=== PATIENT | female | born 1970 | race Caucasian/White ===

== ENCOUNTER → 2016-10-23 | Outpatient (REF) | payer OTHER | LOC: M LAB REF 16:29 | PROVIDERS: ATTEND Internal Medicine | DX: R53.83 Other fatigue (principal) ==

== ENCOUNTER → 2016-11-14 | Outpatient (REF) | payer OTHER ==
[2016-11-14 14:14] LABS: CALCIUM OXALATE CRYSTALS MODERATE
[2016-11-14 14:15] LABS: PERCENT SATURATION 18.6 % (13.2-37.4)
== END ==
LOC: M LAB REF 12:47
PROVIDERS: ATTEND Internal Medicine
DX: Z01.812 Encounter for preprocedural laboratory examination (principal)

== ENCOUNTER → 2017-05-16 | Outpatient (REF) | payer OTHER ==
[2017-05-17 13:39] LABS: VITAMIN B12 LEVEL 571 PG/ML (247-911)
== END ==
LOC: M LAB REF 13:01
DX: D64.9 Anemia, unspecified (principal); R53.83 Other fatigue
CPT/HCPCS: 82607

== ENCOUNTER → 2018-10-03 | Outpatient (REF) | payer OTHER ==
[2018-10-03 14:02] LABS: C REACTIVE PROTEIN QUANTITATIV < 0.30 MG/DL (0.00-0.30); URIC ACID 4.5 MG/DL (2.6-6.0)
== END ==
LOC: M LAB REF 13:37
PROVIDERS: ATTEND Internal Medicine
DX: M25.569 Pain in unspecified knee (principal)

== ENCOUNTER → 2018-12-06 | Outpatient (CLI) | payer OTHER ==
--- NOTE | 2018-12-06 16:13 | REP ---
Right shoulder series: Three views. History: Shoulder pain. Prior findings: The right glenohumeral and acromioclavicular joints are normally aligned. Periarticular soft tissues are unremarkable. Impression: Negative radiographs of the right shoulder. Electronically Signed by Abundio Mcleod MD 12/06/2018 04:05 P
--- NOTE | 2018-12-07 07:26 | REP ---
Cervical spine series: Seven views. History: Neck pain. Findings: Lateral views done in flexion/extension and neutral position show straightening and reversal of the normal cervical lordosis. No subluxation or instability is seen. Cervical vertebral body heights are preserved. There is degenerative narrowing of the C5-6 and C6-7 disc spaces with anterior and posterior osteophytic ridging. The posterior ridging is most pronounced at C5-6. Oblique images demonstrate bilateral uncovertebral spurring at C5-6 producing neural foraminal narrowing, worse on the right. Facets are normally aligned. AP and open mouth odontoid views are unremarkable. Impression: Degenerative disc disease at C5-6 and to a lesser extent C6-7. Straightening. Neural foraminal narrowing at C5-6. Electronically Signed by Abundio Mcleod MD 12/07/2018 09:38 A
== END ==
LOC: M WUC 15:36
PROVIDERS: ATTEND Physician Assistant
DX: M50.322 Other cervical disc degeneration at C5-C6 level (principal); M25.78 Osteophyte, vertebrae; S46.011A Strain of muscle(s) and tendon(s) of the rotator cuff of right shoulder, initial encounter; Y92.9 Unspecified place or not applicable; Y93.9 Activity, unspecified

== ENCOUNTER → 2019-02-11 | Outpatient (CLI) | payer OTHER ==
[~2019-02-11] MED LIST: METHACHOLINE KIT (J7674) INH ONE
--- NOTE | 2019-02-11 09:35 | PFTRPT ---
Height: 70.00 Inches Weight: 183.00 Lbs BSA: 2.01 Diagnosis: R06 DATE OF PROCEDURE: 02/11/2019 ORDERED BY: Dr. Lau INTERPRETATION: Study of excellent technical quality. Under protocol, methacholine was administered. At a dose of 2.5 mg or 13.875 CDUs, a 34% decline in the FEV1 was noted. PC of 0.6 is significant. Flow rates did return to baseline post bronchodilator administration. IMPRESSION: Positive methacholine challenge study. MTDD
== END ==
LOC: M CARPUL 08:39
PROVIDERS: ATTEND Internal Medicine
DX: R06.02 Shortness of breath (principal)
CPT/HCPCS: 94070; J7674

== ENCOUNTER → 2019-07-07 | Outpatient (REF) | payer OTHER ==
[2019-07-07 19:20] LABS: INFLUENZA A AMPLIFICATION POSITIVE (NEGATIVE); INFLUENZA B AMPLIFICATION NEGATIVE (NEGATIVE)
== END ==
LOC: M LAB REF 17:01
PROVIDERS: ATTEND Internal Medicine
DX: J02.9 Acute pharyngitis, unspecified (principal); R50.9 Fever, unspecified

== ENCOUNTER → 2019-11-17 | Outpatient (REF) | payer OTHER | LOC: M LAB REF 16:17 | PROVIDERS: ATTEND Internal Medicine | DX: D51.9 Vitamin B12 deficiency anemia, unspecified (principal) ==

== ENCOUNTER → 2020-04-14 | Outpatient (REF) | payer OTHER ==
[2020-04-15 13:43] LABS: CHLAMYDIA DNA AMPLIFICATION NEGATIVE (NEGATIVE); GC DNA AMPLIFICATION NEGATIVE (NEGATIVE)
== END ==
LOC: M WUC 09:49
PROVIDERS: ATTEND Physician Assistant
DX: R10.30 Lower abdominal pain, unspecified (principal)

== ENCOUNTER → 2020-07-12 | Outpatient (REF) | payer OTHER | LOC: M LAB REF 16:09 | PROVIDERS: ATTEND Internal Medicine | DX: J01.90 Acute sinusitis, unspecified (principal); R05 Cough ==

== ENCOUNTER → 2021-09-05 | Outpatient (REF) | payer OTHER ==
[2021-09-05 18:15] LABS: PERCENT SATURATION 34.1 % (13.2-45.0)
== END ==
LOC: M LAB REF 16:16
PROVIDERS: ATTEND Internal Medicine
DX: R53.83 Other fatigue (principal)

== ENCOUNTER → 2022-02-20 | Outpatient (CLI) | payer OTHER | LOC: M SLEEP HO 09:39 | PROVIDERS: ATTEND Nurse Practitioner Family | DX: R06.83 Snoring (principal) ==

== ENCOUNTER → 2022-07-20 | Outpatient (CLI) | payer BC, OTHER | LOC: M SLEEP 20:00 | PROVIDERS: ATTEND Nurse Practitioner Family | DX: R06.83 Snoring (principal) ==

== ENCOUNTER → 2023-09-13 | Outpatient (REF) | payer OTHER ==
[2023-09-13 17:31] LABS: PERCENT SATURATION 35.1 % (13.2-45.0)
[2023-09-13 17:33] LABS: FERRITIN 87.3 NG/ML (7.3-270.7)
== END ==
LOC: M LAB REF 16:25
PROVIDERS: ATTEND Internal Medicine
DX: R53.83 Other fatigue (principal)

== ENCOUNTER 2024-05-25 12:11 | Outpatient (RCR) | payer BC, OTHER | END 2024-05-26 | LOC: M PT 12:11 | DX: S83.203A Other tear of unspecified meniscus, current injury, right knee, initial encounter (principal); X58.XXXA Exposure to other specified factors, initial encounter; Y92.9 Unspecified place or not applicable ==

== ENCOUNTER 2024-07-10 07:55 | Day surgery (SDC) | payer BC ==
[~2024-07-10] VITALS: Ht 177.8 cm; Wt 96.8 kg
[~2024-07-10 07:55] MED LIST changes: +BUDE10.22 INH; +ESTR1DIS2 TOP; +LEVO112T2 PO; +LIDOCAINE 2% 100MG/5ML SDV (FOR ANES.) As Ordered ONE; +LIOT5TAB6 PO; -METHACHOLINE KIT (J7674) INH ONE; +MONT10TA97 PO; +OMEP-173 PO; +propofoL 200 MG/20 ML VIAL As Ordered ONE
[2024-07-10] MEDS ORDERED: fentaNYL 100 MCG/2 ML INJECTION As Ordered ONE (09:14)
[2024-07-10 09:57] VITALS: TEMP 98
[2024-07-10 10:16] VITALS: BP 118/72; O2SAT 95
== END 2024-07-10 10:17 | disposition home or self-care (01) ==
LOC: M OPP 07:55
PROVIDERS: ATTEND Surgery
DX: K44.9 Diaphragmatic hernia without obstruction or gangrene (principal); K20.90 Esophagitis, unspecified without bleeding; R12 Heartburn; Z79.899 Other long term (current) drug therapy; J45.909 Unspecified asthma, uncomplicated
CPT/HCPCS: 43239; 88305; J3010

== ENCOUNTER → 2024-07-22 | Outpatient (CLI) | payer BC ==
[~2024-07-22] MED LIST changes: -LIDOCAINE 2% 100MG/5ML SDV (FOR ANES.) As Ordered ONE; -propofoL 200 MG/20 ML VIAL As Ordered ONE
== END ==
LOC: M RAD 16:04
PROVIDERS: ATTEND Internal Medicine
DX: E04.9 Nontoxic goiter, unspecified (principal)

== ENCOUNTER → 2024-12-25 | Day surgery (SDC) | payer BC ==
[~2024-12-25] VITALS: Ht 177.8 cm; Wt 90.3 kg
[~2024-12-25] MED LIST changes: +ALLE180T33 PO; +LIDOCAINE VISCOUS 2% SOLN 15 ML UDC As Ordered ONE; +OMEG10002 PO; +THERTAB19 PO
[2024-12-25 09:45] VITALS: BP 115/68; TEMP 97.4; O2SAT 98
== END | disposition home or self-care (01) ==
LOC: M OPP 08:07
PROVIDERS: ATTEND Surgery
DX: K44.9 Diaphragmatic hernia without obstruction or gangrene (principal)